=== PATIENT | male | born 1990 ===

== ENCOUNTER 2017-12-08 12:46 | Emergency (ER) | payer MEDICAID ==
[2017-12-08] MEDS ORDERED: Albuterol-Ipratrop 3 mg / 0.5 (3 ml) UD ONE ×3 (13:29→13:59)
[2017-12-08 13:30] VITALS: BP 120/78; PULSE 64; TEMP 99; O2SAT 99
[2017-12-08] MEDS ORDERED: Albuterol-Ipratrop 3 mg / 0.5 (3 ml) UD INH STA ×3 (13:30→13:39)
[2017-12-08 13:50] VITALS: RESP 20
--- NOTE | 2017-12-08 16:37 | C.PDOC ---
History Of Present Illness 27 year old male presents to the ER with a complaint of mild SOB and asthma symptoms for the past few days. Patient ran out of his ventolin rescue inhaler. Patient is also complaining of seasonal allergies which he has normally. Denies chest pain or fever. Chief Complaint (Nursing): Respiratory Distress History Per: Patient History/Exam Limitations: no limitations Onset/Duration Of Symptoms: Days Current Symptoms Are (Timing): Still Present Initiating Event: Other (Seasonal allergies) Current Respiratory Medications: Other (Ventolin inhaler) Associated Symptoms: Other (SOB). denies: Fever, Chest Pain Recent travel outside of the [place]: No Past Medical History Reviewed: Historical Data, Nursing Documentation, Vital Signs Vital Signs: Last Vital Signs Temp 99 F 12/08/17 13:22 Pulse 64 12/08/17 13:22 Resp 20 12/08/17 13:48 BP 120/78 12/08/17 13:22 Pulse Ox 99 12/08/17 13:22 - Medical History PMH: Asthma, Depression Denies: Diabetes, Hepatitis, HIV, HTN, Chronic Kidney Disease, Seizures, Sexually Transmitted Disease - [facility] GROUP PSYCHOTHERAPY (12/31/16) Family History: States: Unknown Family Hx - Social History Hx Alcohol Use: No Hx Substance Use: Yes Review Of Systems Constitutional: Negative for: Fever ENT: Negative for: Throat Pain, Throat Swelling Cardiovascular: Negative for: Chest Pain Respiratory: Positive for: Cough, Shortness of Breath (Mild), Wheezing Gastrointestinal: Negative for: Nausea, Vomiting Skin: Negative for: Rash Physical Exam - Physical Exam Appears: Non-toxic, No Acute Distress Skin: Normal Color, Warm, Dry Head: Atraumatic, Normacephalic Eye(s): bilateral: Normal Inspection Ear(s): Bilateral: Normal Nose: Normal Oral Mucosa: Moist Throat: Normal, No Erythema, No Exudate Neck: Normal, Supple Chest: Symmetrical, No Tenderness Cardiovascular: Rhythm Regular Respiratory: No Rales, No Rhonchi, Wheezing (Mild expiratory), Other (Good air entry) Gastrointestinal/Abdominal: Soft, No Tenderness Neurological/Psych: Oriented x3, Normal Speech ED Course And Treatment O2 Sat by Pulse Oximetry: 99 (Room air) Pulse Ox Interpretation: Normal Progress Note: Duoneb and prednisone administered. On reevaluation, patient is resting comfortably in the ER in no acute respiratory distress with clear breath sounds, vitals are stable, will discharge home with Rx and instrucitions to follow up with PMD. Disposition - Disposition Referrals: Roman [facility], [Non-Staff] - Disposition: HOME/ ROUTINE Disposition Time: 14:20 Condition: IMPROVED Additional Instructions: TARAH GONZALEZ, thank you for letting us take care of you today. Your provider was Renny Yip DO and you were treated for ASTHMA. The emergency medical care you received today was directed at your acute symptoms. If you were prescribed any medication, please fill it and take as directed. It may take several days for your symptoms to resolve. Return to the Emergency Department if your symptoms worsen, do not improve, or if you have any other problems. Please contact your doctor or call one of the physicians/clinics you have been referred to that are listed on the Patient Visit Information form that is included in your discharge packet. Bring any paperwork you were given at discharge with you along with any medications you are taking to your follow up visit. Our treatment cannot replace ongoing medical care by a primary care provider outside of the emergency department. Thank you for allowing the [facility] team to be part of your care today. Follow up with your primary care doctor in 2-3 days for re-evaluation and further management. Prescriptions: Albuterol Sulfate [Ventolin Hfa] 2 puff IH Q4 PRN #1 unit PRN Reason: wheeze predniSONE [Prednisone] 40 mg PO DAILY #10 tab Instructions: Asthma, Adult (DC) Forms: [facility] (Bahraini) - Clinical Impression Clinical Impression: Exacerbation of asthma - Scribe Statement The provider has reviewed the documentation as recorded by the Scribtrini Whitaker All medical record entries made by the Scribe were at my direction and pe rsonally dictated by me. I have reviewed the chart and agree that the record accurately reflects my personal performance of the history, physical exam, medical decision making, and the department course for this patient. I have also personally directed, reviewed, and agree with the discharge instructions and disposition.
== END 2017-12-08 14:50 | disposition home or self-care (01) ==
LOC: C.ER 12:46
DX: J45.901 Unspecified asthma with (acute) exacerbation (principal); F17.210 Nicotine dependence, cigarettes, uncomplicated

== ENCOUNTER 2018-01-28 11:59 | Emergency (ER) | payer MEDICAID ==
[2018-01-28 12:11] VITALS: O2SAT 97
[2018-01-28] MEDS ORDERED: Albuterol-Ipratrop 3 mg / 0.5 (3 ml) UD ONE (13:14)
[2018-01-28] MEDS ORDERED: Albuterol 0.083% Inhal Sol (2.5 mg/3 mL) UD IH STA (13:52)
[2018-01-28] MEDS ORDERED: Albuterol 0.083% Inhal Sol (2.5 mg/3 mL) UD ONE (14:12)
--- NOTE | 2018-01-28 14:36 | RAD ---
Date of service: 01/28/2018 HISTORY: Shortness of breath. COMPARISON: No prior. TECHNIQUE: Chest PA and lateral FINDINGS: LUNGS: No active pulmonary disease. PLEURA: No significant pleural effusion identified. No pneumothorax apparent. CARDIOVASCULAR: No aortic atherosclerotic calcification present. Normal cardiac size. No pulmonary vascular congestion. OSSEOUS STRUCTURES: No significant abnormalities. VISUALIZED UPPER ABDOMEN: Normal. OTHER FINDINGS: None. IMPRESSION: No active disease.
--- NOTE | 2018-01-28 14:41 | C.PDOC ---
History Of Present Illness 27 year old male with PMHx of asthma presents to the ED complaining of asthma exacerbation. Reports he developed flu-like symptoms associated with congestion, fever, body aches, and cough 5 days ago. States the flu-like symptoms have improved but his asthma symptoms have worsened. Notes he has persistent wheezing, subjective fever, coughing, and feels mucus and congestion in his chest. Notes increased usage of Proair, up to 4 or 5 times per day. States he has never been hospitalized for asthma, only reports previous ED visits where he has been treated with systemic steroids. Denies any expectoration when he coughs, chills, palpitations. Time Seen by Provider: 01/28/18 13:17 Chief Complaint (Nursing): Shortness Of Breath History Per: Patient History/Exam Limitations: no limitations Onset/Duration Of Symptoms: Days Current Symptoms Are (Timing): Still Present Initiating Event: Upper Respiratory Illness Current Respiratory Medications: Albuterol Associated Symptoms: Fever. denies: Chest Pain Past Medical History Reviewed: Historical Data, Nursing Documentation, Vital Signs Vital Signs: Last Vital Signs Temp 98.4 F 01/28/18 12:10 Pulse 94 H 01/28/18 12:10 Resp 20 01/28/18 12:10 BP 132/96 H 01/28/18 12:10 Pulse Ox 97 01/28/18 12:10 - Medical History PMH: Asthma, Depression Denies: Diabetes, Hepatitis, HIV, HTN, Chronic Kidney Disease, Seizures, Sexually Transmitted Disease Other Surgeries: Hx of surgeries - [facility] GROUP PSYCHOTHERAPY (12/31/16) Family History: States: No Known Family Hx - Social History Hx Alcohol Use: No Hx Substance Use: Yes - Immunization History Hx Tetanus Toxoid Vaccination: No Hx Influenza Vaccination: No Review Of Systems Except As Marked, All Systems Reviewed And Found Negative. Constitutional: Positive for: Fever. Negative for: Sweats Cardiovascular: Negative for: Chest Pain, Palpitations Respiratory: Positive for: Cough, Shortness of Breath, Wheezing Gastrointestinal: Negative for: Nausea, Vomiting, Abdominal Pain Physical Exam - Physical Exam Appears: Non-toxic, No Acute Distress Skin: Warm, Dry, No Rash Head: Normacephalic Eye(s): bilateral: Normal Inspection Nose: Normal Oral Mucosa: Moist Neck: Supple Chest: Symmetrical Cardiovascular: Rhythm Regular Respiratory: Normal Breath Sounds, No Decreased Breath Sounds, No Rales, No Rhonchi, No Wheezing Gastrointestinal/Abdominal: Soft, No Tenderness Extremity: Normal ROM, No Pedal Edema Extremity: Bilateral: Atraumatic, Normal Color And Temperature, Normal ROM Neurological/Psych: Oriented x3, Normal Speech Gait: Steady ED Course And Treatment O2 Sat by Pulse Oximetry: 97 (RA) Pulse Ox Interpretation: Normal - Other Rad CXR X-Ray: Viewed By Me, Read By Radiologist Interpretation: Accession No. : [id number]. Patient Name / ID : LISA RASCON / [id number]. Exam Date : 01/28/2018 13:58:02 ( Approved ). Study Comment : Sex / Age : M / 27Y. Creator : Don Fletcher MD. Dictator : Don Fletcher MD. Manager Parking : Ditcher Operator : Don Fletcher MD. Approver2 : Report Date : 01/28/2018 14:32:32. My Comment : . Date of service: 01/28/2018. HISTORY: Shortness of breath. COMPARISON: No prior. TECHNIQUE: Chest PA and lateral. FINDINGS: LUNGS: No active pulmonary disease. PLEURA: No significant pleural effusion identified. No pneumothorax apparent. CARDIOVASCULAR: No aortic atherosclerotic calcification present. Normal cardiac size. No pulmonary vascular congestion. OSSEOUS STRUCTURES: No significant abnormalities. VISUALIZED UPPER ABDOMEN: Normal. OTHER FINDINGS: None. IMPRESSION: No active disease. Reevaluation Time: 15:14 Reassessment Condition: Improved (No respiratory distress, Lungs clear without wheezing.) Medical Decision Making Medical Decision Making: Plan - Neb Treatment - Prednisone 60mg PO Disposition Counseled Patient/Family Regarding: Studies Performed, Diagnosis, Need For Followup, Rx Given - Disposition Referrals: [facility] [Outside] Disposition: HOME/ ROUTINE Disposition Time: 15:15 Condition: IMPROVED Prescriptions: Albuterol HFA [Ventolin HFA 90 mcg/actuation (8 g)] 200 puff IH QID PRN #1 inhaler PRN Reason: Wheezing Prednisone 50 mg PO DAILY #4 tablet Instructions: Medicines for Asthma, Asthma in Adults Forms: [facility] (Tuvaluan) - Clinical Impression Clinical Impression: Acute asthma exacerbation - Scribe Statement The provider has reviewed the documentation as recorded by the Scribe Lauren Greenwood All medical record entries made by the Scribe were at my direction and personally dictated by me. I have reviewed the chart and agree that the record accurately reflects my personal performance of the history, physical exam, medical decision making, and the department course for this patient. I have also personally directed, reviewed, and agree with the discharge instructions and disposition.
[2018-01-28 15:31] VITALS: BP 127/82; PULSE 92; RESP 17; TEMP 99.1
--- NOTE | 2018-01-30 17:53 | CARD ---
APPROVED REPORT Date of service: 01/28/2018 EKG Measurement Heart [id number] <Conclusion> Normal sinus rhythm Normal ECG
== END 2018-01-28 15:53 | disposition home or self-care (01) ==
LOC: C.ER 11:59
DX: J45.901 Unspecified asthma with (acute) exacerbation (principal); F17.210 Nicotine dependence, cigarettes, uncomplicated

== ENCOUNTER 2018-03-04 14:52 | Emergency (ER) | payer MEDICAID, OTHER ==
[2018-03-04] MEDS ORDERED: Albuterol-Ipratrop 3 mg / 0.5 (3 ml) UD ONE ×2 (15:07→17:01)
[2018-03-04] MEDS: Albuterol-Ipratrop 3 mg / 0.5 (3 ml) UD IH SCH (17:21)
--- NOTE | 2018-03-04 17:49 | C.PDOC ---
History Of Present Illness 27 year old male, whose past medical history includes asthma, presents to the ED for evaluation of cough, congestion and shortness of breath that has been worsening over the past 2 days. Patient states he ran out of his albuterol two days ago. Patient also complains of generalized body aches. Patient denies chest pain, neck pain, headache. Chief Complaint (Nursing): Cough, Cold, Congestion History Per: Patient History/Exam Limitations: no limitations Onset/Duration Of Symptoms: Days (3) Current Symptoms Are (Timing): Still Present Additional History Per: Patient Past Medical History Reviewed: Historical Data, Nursing Documentation, Vital Signs Vital Signs: Last Vital Signs Temp 97.8 F 03/04/18 15:00 Pulse 102 H 03/04/18 15:00 Resp 18 03/04/18 15:00 BP 114/79 03/04/18 15:00 Pulse Ox 97 03/04/18 15:00 - Medical History PMH: Asthma, Depression Denies: Diabetes, Hepatitis, HIV, HTN, Chronic Kidney Disease, Seizures, Sexually Transmitted Disease Surgical History: No Surg Hx - [facility] GROUP PSYCHOTHERAPY (12/31/16) Family History: States: Unknown Family Hx - Social History Hx Alcohol Use: No Hx Substance Use: No - Immunization History Hx Tetanus Toxoid Vaccination: No Hx Influenza Vaccination: No Hx Pneumococcal Vaccination: No Review Of Systems ENT: Positive for: Nose Congestion Cardiovascular: Negative for: Chest Pain Respiratory: Positive for: Cough Musculoskeletal: Negative for: Neck Pain Neurological: Negative for: Headache Physical Exam - Physical Exam Appears: Non-toxic, No Acute Distress Skin: Normal Color, Warm, Dry Head: Atraumatic, Normacephalic Eye(s): bilateral: Normal Inspection Oral Mucosa: Moist Neck: Supple Chest: Symmetrical, No Deformity, No Tenderness Respiratory: Rhonchi (diffuse ), Wheezing (expiratory ), Other (good air movement ) Extremity: Normal ROM, Capillary Refill (less than 2 seconds ) Neurological/Psych: Oriented x3, Normal Speech, Normal Cognition ED Course And Treatment O2 Sat by Pulse Oximetry: 97 Pulse Ox Interpretation: Normal Medical Decision Making Medical Decision Making: Progress: Duoneb IH, Tamiflu PO, and Prednisone PO given. Flu swab ordered Disposition Counseled Patient/Family Regarding: Studies Performed, Diagnosis, Need For Followup - Disposition Disposition: HOME/ ROUTINE Disposition Time: 17:46 Condition: IMPROVED Additional Instructions: TARAH GONZALEZ, thank you for letting us take care of you today. Your provider was Starla Gracia MD and you were treated for ASTHMA/SOB/CHEST PAIN. The [facility] medical care you received today was directed at your acute symptoms. If you were prescribed any medication, please fill it and take as directed. It may take several days for your symptoms to resolve. Return to the Emergency Department if your symptoms worsen, do not improve, or if you have any other problems. Please contact your doctor in 1-2 days for a follow up appointment. Bring any paperwork you were given at discharge with you along with any medications you are taking to your follow up visit. Our treatment cannot replace ongoing medical care by a primary care provider outside of the emergency department. Thank you for allowing the [facility] team to be part of your care today. Prescriptions: Albuterol HFA [Ventolin HFA 90 mcg/actuation (8 g)] 2 puff IH [id number] PRN #1 bottle PRN Reason: Wheezing Albuterol 0.083% [Albuterol 0.083% Inhal Eliana (2.5 mg/3 ml) UD] 2.5 mg IH Q6H PRN #24 each PRN Reason: Wheezing Oseltamivir Phosphate [Tamiflu] 75 mg PO BID #9 capsule predniSONE [Prednisone] 40 mg PO DAILY #10 tab Instructions: Asthma, Adult (DC), Influenza (ED), Upper Respiratory Infection (ED) Forms: [facility] (Italian), General Discharge Instructions, Gen Discharge Inst Ivorian, [facility] (Ivorian) - POA Present On Arrival: None - Clinical Impression Clinical Impression: Upper respiratory infection, Asthma exacerbation, Influenza A, Medication refill - Scribe Statement The provider has reviewed the documentation as recorded by the Scribe (Scarlet Gann) Provider Attestation: All medical record entries made by the Scribe were at my direction and personally dictated by me. I have reviewed the chart and agree that the record accurately reflects my personal performance of the history, physical exam, medical decision making, and the department course for this patient. I have also personally directed, reviewed, and agree with the discharge instructions and disposition.
[2018-03-04 18:13] VITALS: BP 133/75; PULSE 97; RESP 20; TEMP 98.8
[2018-03-04 18:43] VITALS: O2SAT 97
== END 2018-03-04 18:13 | disposition home or self-care (01) ==
LOC: C.ER 14:52 → C.9E 17:44 → UNDOADMIN 17:44 → C.9E 18:12 → C.3T 18:39 → C.9E 18:39 → C.3T 18:53 → C.9E 18:53
DX: J11.1 Influenza due to unidentified influenza virus with other respiratory manifestations (principal); J45.901 Unspecified asthma with (acute) exacerbation; Z76.0 Encounter for issue of repeat prescription

== ENCOUNTER 2018-06-01 09:13 | Emergency (ER) | payer OTHER ==
[2018-06-01 09:34] VITALS: RESP 18; O2SAT 99
[2018-06-01] MEDS ORDERED: Albuterol-Ipratrop 3 mg / 0.5 (3 ml) UD INH STA (10:11)
[2018-06-01] MEDS ORDERED: Albuterol-Ipratrop 3 mg / 0.5 (3 ml) UD ONE (10:50)
[2018-06-01 13:16] VITALS: BP 120/78; PULSE 74; TEMP 98.4
--- NOTE | 2018-06-01 13:28 | C.PDOC ---
History Of Present Illness Patient is a 27 year old male with a past medical history of asthma, who presents with complaints of chest tightness. He states his chest feels tight due to his asthma and says he is almost out of his albuterol. He uses his Ventolin about twice per day and his nebulizer only twice per week as his nebulizer machine needs new filter. He says his asthma worsens when pollen/seasonal allergies are worse. He says he had wheezing this morning, but took a hot shower and the wheezing resolved. He currently denies having wheezing, short of breath, difficulty breathing, palpitations, chest pain, and pain with breathing. PMHX: asthma SurgHx: wrist fracture, "has a screw" SocHx: denies tobacco, alcohol, and drug use; unemployed Allergies: NKDA Meds: Ventolin Time Seen by Provider: 06/01/18 10:12 Chief Complaint (Nursing): Cough, Cold, Congestion Past Medical History Vital Signs: Last Vital Signs Temp 98.4 F 06/01/18 12:00 Pulse 74 06/01/18 12:00 Resp 18 06/01/18 12:00 BP 120/78 06/01/18 12:00 Pulse Ox 99 06/01/18 12:00 - Medical History PMH: Asthma, Depression Denies: Diabetes, Hepatitis, HIV, HTN, Chronic Kidney Disease, Seizures, Sexually Transmitted Disease - [facility] GROUP PSYCHOTHERAPY (12/31/16) Family History: States: Unknown Family Hx - Social History Hx Alcohol Use: No Hx Substance Use: No - Immunization History Hx Tetanus Toxoid Vaccination: No Hx Influenza Vaccination: No Hx Pneumococcal Vaccination: No Review Of Systems Constitutional: Negative for: Fever, Chills, Weakness Cardiovascular: Negative for: Chest Pain, Palpitations Respiratory: Positive for: Wheezing (occasional, not currently), Other (admits t o chest tightness). Negative for: Cough, Shortness of Breath, Pleuritic Pain, Sputum Physical Exam - Physical Exam Appears: Well, Non-toxic, No Acute Distress Skin: Normal Color, Warm, Dry Nose: Normal, No Discharge Chest: Symmetrical, No Tenderness Cardiovascular: Rhythm Regular Respiratory: Normal Breath Sounds, No Accessory Muscle Use, No Rales, No Rhonchi, No Stridor, No Wheezing ED Course And Treatment O2 Sat by Pulse Oximetry: 99 Medical Decision Making Medical Decision Making: Ordered nebulizer treatment stat. Will send patient with prescriptions for prednisone 60mg PO for 3 days, ventolin inhaler, and singulair 10mg PO HS and a referral to the [facility] for continued care. Disposition - Disposition Referrals: [facility] [Outside] Disposition: HOME/ ROUTINE Disposition Time: 12:00 Condition: STABLE Additional Instructions: Patient instructed to take the following medications as prescribed: prednisone 60mg PO for 3 days, ventolin inhaler, and singulair 10mg PO HS. Patient instructed to make an appointment at [facility] for continued care. Instructed to return to nearest ER if symptoms worsen. Prescriptions: Albuterol HFA [Ventolin HFA 90 mcg/actuation (8 g)] 1 puff IH Q6H PRN #1 inhaler PRN Reason: Wheezing Montelukast Sodium [Singulair] 10 mg PO HS #30 tablet Instructions: Asthma in Adults Forms: [facility] (Faroese) - Clinical Impression Clinical Impression: Asthma
== END 2018-06-01 12:00 | disposition home or self-care (01) ==
LOC: C.ER 09:13
DX: J45.909 Unspecified asthma, uncomplicated (principal)

== ENCOUNTER 2018-06-25 11:31 | Emergency (ER) | payer OTHER ==
[2018-06-25 11:43] VITALS: O2SAT 99
[2018-06-25] MEDS ORDERED: Albuterol-Ipratrop 3 mg / 0.5 (3 ml) UD ONE ×3 (11:45→12:27)
--- NOTE | 2018-06-25 11:49 | C.PDOC ---
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 Patient has used his albuterol inhaler many puffs without any improvement on symptoms. no hx intubation. not on steroids. peak flow at home about 250, max about 300 per pt. Patient with mild cough with occasional yellow sputum, no fevers or chills. No other associated symptoms. Time Seen by Provider: 06/25/18 11:44 Chief Complaint (Nursing): Shortness Of Breath History Per: Patient History/Exam Limitations: no limitations Past Medical History Reviewed: Historical Data, Nursing Documentation, Vital Signs Vital Signs: Last Vital Signs Temp 98 F 06/25/18 11:41 Pulse 97 H 06/25/18 11:41 Resp 20 06/25/18 11:41 BP 123/76 06/25/18 11:41 Pulse Ox 99 06/25/18 11:41 - Medical History PMH: Asthma, Depression Denies: Diabetes, Hepatitis, HIV, HTN, Chronic Kidney Disease, Seizures, Sexually Transmitted Disease - [facility] GROUP PSYCHOTHERAPY (12/31/16) Family History: States: Unknown Family Hx - Social History Hx Alcohol Use: No Hx Substance Use: Yes - Immunization History Hx Tetanus Toxoid Vaccination: No Hx Influenza Vaccination: No Hx Pneumococcal Vaccination: No Review Of Systems Constitutional: Negative for: Fever, Chills Cardiovascular: Negative for: Chest Pain, Palpitations Respiratory: Positive for: Cough, Sputum, Wheezing Gastrointestinal: Negative for: Nausea, Vomiting Neurological: Negative for: Weakness, Numbness, Dizziness Physical Exam - Physical Exam Appears: Non-toxic, No Acute Distress Skin: Warm, No Rash Head: Atraumatic, Normacephalic Eye(s): bilateral: PERRL, EOMI Neck: Normal ROM, Supple Chest: Symmetrical, No Tenderness Cardiovascular: Rhythm Regular, No Murmur Respiratory: No Accessory Muscle Use, No Wheezing, Other (Speaking in full sentences; Mildly tachypneic, with slightly decreased air movement) Extremity: Normal ROM, No Calf Tenderness, No Swelling Neurological/Psych: Oriented x3, Normal Speech, Normal Cognition Gait: Steady ED Course And Treatment O2 Sat by Pulse Oximetry: 99 (on RA) Pulse Ox Interpretation: Normal Medical Decision Making Medical Decision Making: Impression: Asthma exacerbation Initial peak flow prior to treatment 250, after treatment 460. pt feeling less tight. better air movement. will order another treatment 12:45 On re-evaluation patient reports feeling better after second nebulizer treatment. pf up to 600 after second treatment. Plan is to discharge patient home, prescriptions provided for neb machine, (pt rpeorts his is broken), albuterol for nebs and mdi. no steroids given; pt had po steroids 2 times since Mar and had resolution of symptoms today with only nebs. pt given mask to use at work to avoid dust. Disposition Counseled Patient/Family Regarding: Diagnosis, Need For Followup, Rx Given - Disposition Referrals: [facility] [Outside] Disposition: HOME/ ROUTINE Disposition Time: 12:48 Condition: IMPROVED Additional Instructions: Take medications as prescribed. Please follow up in medical clinic in the next few days. Check peak flow daily and sofi on chart. Wear dust mask when exposed to dust at work amd try to avoid other asthma triggers. Return to ER for any worse symptoms. Prescriptions: Albuterol 0.083% [Albuterol 0.083% Inhal Eliana (2.5 mg/3 ml) UD] 2.5 mg IH Q6 #50 neb Albuterol HFA [Ventolin HFA 90 mcg/actuation (8 g)] 2 puff IH Q6 #1 inhaler Loratadine [Claritin] 10 mg PO DAILY #30 tab Montelukast Sodium [Singulair] 10 mg PO HS #30 tablet Nebulizer [Compact Compressor Nebulizer] 1 dev INH Q6 #1 dev Instructions: Asthma, Adult (DC), Avoiding Asthma Triggers Forms: General Discharge Instructions, [facility] (Azeri), Work Excuse - Clinical Impression Clinical Impression: Acute asthma exacerbation - PA / EARLY MORNING / Resident Statement MD/DO has reviewed & agrees with the documentation as recorded. - Scribe Statement The provider has reviewed the documentation as recorded by the Scribe Radha Calvert All medical record entries made by the Josefinaibe were at my direction and personally dictated by me. I have reviewed the chart and agree that the record accurately reflects my personal performance of the history, physical exam, medical decision making, and the department course for this patient. I have also personally directed, reviewed, and agree with the discharge instructions and disposition.
[2018-06-25] MEDS ORDERED: Albuterol-Ipratrop 3 mg / 0.5 (3 ml) UD INH STA ×2 (11:51→12:40)
[2018-06-25 12:49] VITALS: BP 126/82; PULSE 84; RESP 18; TEMP 97.8
== END 2018-06-25 13:00 | disposition home or self-care (01) ==
LOC: C.ER 11:31
DX: J45.901 Unspecified asthma with (acute) exacerbation (principal)